=== PATIENT | male | born 1955 | race Caucasian/White ===

== ENCOUNTER 2024-05-08 09:09 | Outpatient (CLI) | payer MEDICARE | END 2024-05-08 09:10 | disposition home or self-care (01) | LOC: CSHWCC 09:09 | PROVIDERS: ATTEND Nurse Practitioner Family | DX: T21.24XD Burn of second degree of lower back, subsequent encounter (principal) | CPT/HCPCS: 11042; G0463; 99213 ==

== ENCOUNTER 2024-05-14 14:00 | Outpatient (CLI) | payer MEDICARE | END 2024-05-14 14:01 | disposition home or self-care (01) | LOC: CSHWCC 14:00 | PROVIDERS: ATTEND Nurse Practitioner Family | DX: T21.24XD Burn of second degree of lower back, subsequent encounter (principal) | CPT/HCPCS: 11042 ==

== ENCOUNTER 2024-05-21 14:45 | Outpatient (CLI) | payer MEDICARE | END 2024-05-21 14:46 | disposition home or self-care (01) | LOC: CSHWCC 14:45 | PROVIDERS: ATTEND Nurse Practitioner Family | DX: T21.24XD Burn of second degree of lower back, subsequent encounter (principal) | CPT/HCPCS: 99212; G0463 ==